=== PATIENT | female | born 2000 | race Caucasian/White ===

== ENCOUNTER 2022-06-10 07:32 | Emergency (ER) | payer BC ==
[2022-06-10] MEDS ORDERED: Ibuprofen 200 MG TAB ONE (08:21)
[2022-06-10] MEDS ORDERED: Ondansetron ODT 4 MG TAB ONE (08:21)
[2022-06-10] MEDS ORDERED: Dicyclomine 20 MG TAB ONE (08:22)
[2022-06-10 09:10] LABS: SARS-CoV-2 NAA Rapid Test DETECTED (NotDetected)
== END 2022-06-10 10:15 | disposition home or self-care (01) ==
LOC: CSHERS 07:32
DX: U07.1 COVID-19 (principal)
CPT/HCPCS: 99284; Q0162

== ENCOUNTER 2022-08-08 21:21 | Emergency (ER) | payer BC ==
[2022-08-08 22:10] LABS: ALT (SGPT) 14 U/L (8-55); Alkaline Phosphatase 69 U/L (40-100); Anion Gap 17 mmol/L (10-20); BUN (Urea Nitrogen) 15 mg/dL (7.0-18.7); Bilirubin, Total 0.4 mg/dL (0.2-1.2); Calc. Creatinine Clearance 0 mL/min (70-130); Calcium 8.9 mg/dL (7.8-10.44); Carbon Dioxide 22 mmol/L (22-29); Chloride 105 mmol/L (98-107); Estimated GFR 96; Globulin 3.1 g/dL (2.4-3.5); Glucose 86 mg/dL (70-105); Lipase 33 U/L (8-78); Potassium 4.9 mmol/L (3.5-5.1); Protein, Total 7.1 g/dL (6.0-8.3); Sodium 139 mmol/L (136-145)
[2022-08-08 22:25] LABS: Hemoglobin 13.1 g/dL (12.0-15.5); Mean Corpuscular HGB CONC 34.7 g/dL (32.0-36.0); Mean Corpuscular Hemoglobin 29.8 pg (27.0-33.0); Mean Corpuscular Volume 85.9 fl (81.6-98.3); Platelet Count 286 10x3/uL (150-450); RBC Distribution Width 12.5 % (11.5-14.5); White Blood Cell (WBC) Count 11.3 10x3/uL (3.5-10.5)
[2022-08-08 22:42] LABS: AST (SGOT) 21 U/L (5-34)
[2022-08-08 22:43] LABS: #Basophils 0.1 10x3/uL (0.0-0.2); #Eosinphils 0.1 10x3/uL (0.0-0.5); #Monocytes 0.6 10x3/uL (0.0-1.1); #Neutrophils 7.4 10x3/uL (1.5-8.4); %Basophils 0.5 % (0.0-2.0); %Eosinophils 0.7 % (0.0-6.0); %Lymphocytes 27.4 % (18.0-47.0); %Monocytes 5.2 % (0.0-10.0); %Neutrophils 65.9 % (40.0-75.0)
[2022-08-08 23:45] LABS: BHCG - Serum Negative (NEGATIVE); Pregs Control Background? CLEAR/WHITE (CLR/WHITE); Pregs Control Bar Appear? YES (CONTROL BAR)
== END 2022-08-08 23:45 | disposition home or self-care (01) ==
LOC: CSHERS 21:21
DX: K52.9 Noninfective gastroenteritis and colitis, unspecified (principal)
CPT/HCPCS: 36415; 80053; 83690; 84703; 85025; 99284